=== PATIENT | male | born 1995 | race Caucasian/White ===

== ENCOUNTER → 2022-01-28 08:27 | Outpatient (BNVA) | payer OTHER, SELFPAY | PROVIDERS: Visit Provider Nurse Practitioner | DX: Z02.1 Encounter for pre-employment examination (principal) | CPT/HCPCS: 80307 ==

== ENCOUNTER 2023-11-25 11:33 | Outpatient (CLI) | payer BC, SELFPAY ==
--- NOTE | 2023-11-25 11:39 | XRR_ITS ---
PROCEDURE INFORMATION: Exam: XR Cervical Spine Exam date and time: 11/25/2023 11:45 AM Age: 28 years old Clinical indication: Radicular pain (radiculopathy); Cervical region; Patient HX: Neck and right shoulder pain for 7 weeks, numbness in right fingers; Additional info: M54.12 - radiculopathy, cervical region TECHNIQUE: Imaging protocol: Radiologic exam of the cervical spine. Views: 2 or 3 views. COMPARISON: No relevant prior studies available. FINDINGS: Bones/joints: Straightening of cervical lordosis. C7 only visualized on swimmer's view. Vertebral body and intervertebral disc heights are maintained . No acute fracture or dislocation. Facet joints are unremarkable. Soft tissues: No significant soft tissue pathology. XR/XR cervical spine 3V* [id number] IMPRESSION: Negative except for straightening of the cervical lordosis.
== END 2023-11-25 11:34 | disposition home or self-care (01) ==
LOC: RAD 11:35
PROVIDERS: PCP Nurse Practitioner Family; Visit Provider Nurse Practitioner Family
DX: M54.12 Radiculopathy, cervical region (principal)
CPT/HCPCS: 72040

== ENCOUNTER 2023-12-25 09:12 | Outpatient (CLI) | payer BC, SELFPAY ==
--- NOTE | 2023-12-25 09:30 | MR_ITS ---
WS: [id number] MRI CERVICAL SPINE NONCONTRAST TECHNIQUE: Sagittal T1, T2 and STIR imaging. Axial T2, gradient, and fiesta imaging. CLINICAL INFORMATION: M50.20 - Other cervical disc displacement, unspecified ce... COMPARISON: None. FINDINGS: Straightening with slight reversal of normal cervical lordosis. Mild disc bulging worse at C3-C4 C5-C 6 and C6-C7. Cord signal is normal. C2-C3: Normal. C3-C4: Mild disc bulging with mild central canal stenosis. Mild facet arthropathy. Mild LEFT foramina l narrowing. C4-C5: No significant disc bulging. Mild facet arthropathy. Mild LEFT foraminal narrowing. C5-C6: Central disc osteophyte protrusion with slight indentation of the cervical cord. Mild central canal stenosis. Moderate facet arthropathy. Moderate LEFT greater than RIGHT bony foraminal narrowing . C6-C7: Slight retrolisthesis C6 on C7. Disc osteophyte complex with slight indentation of the LEFT ve ntral cervical cord. Mild central canal stenosis. Moderate bilateral bony foraminal narrowing. Modera te facet arthropathy. C7-T1: Mild LEFT and no RIGHT foraminal narrowing. Spinal canal is patent. Visualized brain stem structures: Normal. Prevertebral soft tissues: Normal. Partially visualized retention cyst in the maxillary sinuses. MR/MR cervical spin wo con* [id number] IMPRESSION: 1. Straightening with slight reversal of the normal cervical lordosis. 2. Mild central canal stenosis C3-4 C5-C6 and C6-C7 with slight indentation of the cervical cord at C5-C6 and C6-C7 described above. 3. Multilevel bony foraminal narrowing worse at LEFT C5-C6, bilateral C6-7 and LEFT C7-T1.
== END 2023-12-25 09:13 | disposition home or self-care (01) ==
LOC: RAD 09:12
PROVIDERS: PCP Nurse Practitioner Family; Visit Provider Nurse Practitioner Family
DX: M54.12 Radiculopathy, cervical region (principal); M48.02 Spinal stenosis, cervical region; M99.61 Osseous and subluxation stenosis of intervertebral foramina of cervical region; M99.62 Osseous and subluxation stenosis of intervertebral foramina of thoracic region; M25.78 Osteophyte, vertebrae
CPT/HCPCS: 72141

== ENCOUNTER → 2025-06-16 14:00 | Outpatient (BNVA) | payer BC, SELFPAY | PROVIDERS: PCP Nurse Practitioner Family; Visit Provider Nurse Practitioner Family | DX: S99.911A Unspecified injury of right ankle, initial encounter (principal); X58.XXXA Exposure to other specified factors, initial encounter | CPT/HCPCS: 73610 ==